=== PATIENT | male | born 1990 | race Caucasian/White ===

== ENCOUNTER 2017-06-10 05:08 | Emergency (ER) | payer MEDICAID, OTHER ==
[~2017-06-10] VITALS: Ht 177.8 cm; Wt 72.6 kg
--- NOTE | 2017-06-10 05:08 | NUR ---
PT BIB GF FROM HOME, PT C/O MID STERNAL CHEST BURNING X 2 HOURS [employer]IM[employer]. VSS NAD A/OX4 GF AT BEDSIDE. WILL CONTINUE TO MONITOR FOR ANY CHANGES DURING THE SHIFT.
[2017-06-10] MEDS ORDERED: MAG HYDROX/AL HYDROX/SIMETH 30 ML UDC ONE (05:20)
[2017-06-10] MEDS ORDERED: ONDANSETRON HCL/PF 4 MG/2 ML VIAL ONE (05:20)
[2017-06-10] MEDS ORDERED: LIDOCAINE VISCOUS 2% UD 15 ML UDC ONE (05:20)
--- NOTE | 2017-06-10 05:20 | NUR ---
ER AT BEDSIDE
[2017-06-10] MEDS ORDERED: MAG HYDROX/AL HYDROX/SIMETH 30 ML UDC PO ONE (05:30)
[2017-06-10] MEDS ORDERED: ONDANSETRON HCL/PF 4 MG/2 ML VIAL IM ONE (05:30)
[2017-06-10] MEDS ORDERED: ALBUTEROL FS 2.5 MG/0.5 ML VIAL.NEB NEB ONE (05:30)
[2017-06-10] MEDS ORDERED: LIDOCAINE VISCOUS 2% UD 15 ML UDC MM ONE (05:30)
[2017-06-10] MEDS ORDERED: ALBUTEROL FS 2.5 MG/0.5 ML VIAL.NEB ONE (05:33)
--- NOTE | 2017-06-10 05:36 | NUR ---
RT AT BEDSIDE FOR BREATHING TX
--- NOTE | 2017-06-10 05:45 | NUR ---
COMPUTER OPERATIONS MANAGER AT BEDSIDE
[2017-06-10 06:12] VITALS: BP 144/71
== END 2017-06-10 06:13 | disposition home or self-care (01) ==
LOC: ER 05:13
DX: R05 Cough (principal); K21.9 Gastro-esophageal reflux disease without esophagitis; J45.909 Unspecified asthma, uncomplicated; Z88.1 Allergy status to other antibiotic agents
CPT/HCPCS: 71045; 94640; 96372; 99283; A4606; J2405; Z7610